=== PATIENT | female | born 1970 | race Caucasian/White ===

== ENCOUNTER 2017-03-11 02:03 | Emergency (ER) | payer BC ==
[2017-03-11] MEDS ORDERED: ASPIRIN 81 MG TABLET, CHEWABLE PO ONE (03:41)
[2017-03-11] MEDS ORDERED: METOCLOPRAMIDE HCL ORAL SOLN 10 MG/10 ML UDCUP PO ONE (04:43)
[2017-03-11] MEDS ORDERED: LIDOCAINE 2% VISCOUS SOLN 20 ML UDCUP PO ONE (04:43)
[2017-03-11] MEDS ORDERED: MAG HYDROX/AL HYDROX/SIMETH SUSP 30 ML UDCUP PO PRN (04:43)
--- NOTE | 2017-03-11 04:52 | RADIOLOGY REPORT (SQ) ---
EXAM DESCRIPTION: CHEST SINGLE VIEW COMPLETED DATE/TIME: 03/11/2017 4:40 am REASON FOR STUDY: cp COMPARISON: Chest x-ray 03/09/2009. EXAM PARAMETERS: NUMBER OF VIEWS: One view. TECHNIQUE: Single frontal radiographic view of the chest acquired. RADIATION DOSE: NA LIMITATIONS: None. FINDINGS: LUNGS AND PLEURA: There is a moderate right-sided pleural effusion with airspace opacity a t the right lung base. There is an area of increased lucency along the right heart border. No pneum othorax. MEDIASTINUM AND HILAR STRUCTURES: No masses. Contour normal. HEART AND VASCULAR STRUCTURES: The heart is upper normal limit in size. No overt vascular congestion . BONES: No acute findings. HARDWARE: None in the chest. IMPRESSION: Moderate right pleural effusion with airspace opacity at the right lung base. Area of increased lucency along the right heart border, may represent a cavitary lesion versus superi mposed bowel loop. CT thorax recommended for further evaluation. TECHNICAL DOCUMENTATION: JOB ID: [id number]
[2017-03-11 05:05] LABS: ABSOLUTE BASOPHILS # (AUTO) 0.1 10^3/uL (0.0-0.2); ABSOLUTE MONOCYTES (AUTO) 0.4 10^3/uL (0.1-1.4); ABSOLUTE NEUT (AUTO) 9.5 10^3/uL (1.7-8.2); BASOPHILS % (AUTO) 0.7 % (0-2); EOSINOPHILS % (AUTO) 0.4 % (0-6); HEMATOCRIT 44.3 % (36.0-47.0); HEMOGLOBIN 15.6 g/dL (12.0-15.5); HGB HCT DIFFERENCE 2.5; LYMPHOCYTES % (AUTO) 9.4 % (13-45); MEAN CORPUSCULAR HEMOGLOBIN 30.2 pg (27.0-33.4); MEAN CORPUSCULAR HGB CONC 35.3 g/dL (32.0-36.0); MEAN CORPUSCULAR VOLUME 86 fl (80-97); MONOCYTES % (AUTO) 3.8 % (3-13); RED BLOOD COUNT 5.18 10^6/uL (3.72-5.28); SEGMENTED NEUTROPHILS % (AUTO) 85.7 % (42-78); WHITE BLOOD COUNT 11.1 10^3/uL (4.0-10.5)
[2017-03-11 05:22] LABS: ALANINE AMINOTRANSFERASE 32 U/L (9-52); ALBUMIN 4.5 g/dL (3.5-5.0); ALKALINE PHOSPHATASE 86 U/L (38-126); ANION GAP 11 (5-19); ASPARTATE AMINO TRANSFERASE 21 U/L (14-36); BILIRUBIN,DIRECT 0.2 mg/dL (0.0-0.4); BILIRUBIN,TOTAL 0.9 mg/dL (0.2-1.3); BLOOD UREA NITROGEN 11 mg/dL (7-20); CALCIUM 9.5 mg/dL (8.4-10.2); CARBON DIOXIDE 25 mmol/L (22-30); CHLORIDE 103 mmol/L (98-107); CREATINE KINASE 118 U/L (30-135); GLUCOSE 115 mg/dL (75-110); LIPASE 68.8 U/L (23-300); POTASSIUM 4.1 mmol/L (3.6-5.0); SODIUM 139.3 mmol/L (137-145); TOTAL PROTEIN 7.4 g/dL (6.3-8.2)
[2017-03-11 05:32] LABS: CREATINE KINASE MB 0.84 ng/mL (<4.55)
--- NOTE | 2017-03-11 05:32 | ER Document Report ---
ED GI/ - General Mode of Arrival: Ambulatory Information source: Patient - HPI Patient complains to provider of: Abdominal pain Associated symptoms: None Similar symptoms previously: Yes <RUSTY BALDERAS - Last Filed: 03/11/17 06:10> <DEBBY LYNN - Last Filed: 03/11/17 08:18> - General Chief Complaint: Chest Pain Stated Complaint: CHEST PAIN/TIGHTNESS Time Seen by Provider: 03/11/17 05:10 Notes: Patient is a 46-year-old female who presents to the emergency department today with complaints of upper abdominal pain. Patient states she has had similar pain 3-4 times a month which usually goes away with Zantac and Gas-X. Patient states this time the pain did not subside with Zantac or Gas-X. Patient states she feels like there is a "band" around the top of her stomach. Patient denies any change with food or vomiting. (RUSTY BALDERAS) - Related Data Allergies/Adverse Reactions: No Known Allergies Allergy (Unverified 03/11/17 02:26) Past Medical History - General Information source: Patient - Social History Smoking Status: Never Smoker Cigarette use (# per day): No Frequency of alcohol use: None Drug Abuse: None Lives with: Family Family History: Reviewed & Not Pertinent - Medical History Medical History: Negative Surgical Hx: Negative <RUSTY BALDERAS - Last Filed: 03/11/17 06:10> Review of Systems - Review of Systems Constitutional: No symptoms reported EENT: No symptoms reported Cardiovascular: No symptoms reported Respiratory: No symptoms reported Gastrointestinal: See HPI, Abdominal pain. denies: Vomiting Genitourinary: No symptoms reported Female Genitourinary: No symptoms reported Musculoskeletal: No symptoms reported Skin: No symptoms reported Hematologic/Lymphatic: No symptoms reported Neurological/Psychological: No symptoms reported -: Yes All other systems reviewed and negative <RUSTY BALDERAS - Last Filed: 03/11/17 06:10> Physical Exam <RUSTY BALDERAS - Last Filed: 03/11/17 06:10> <DEBBY LYNN - Last Filed: 03/11/17 08:18> - Vital signs Vitals: Temp Pulse Resp BP Pulse Ox 97.4 F 69 16 154/96 H 95 03/11/17 02:29 03/11/17 02:29 03/11/17 02:29 03/11/17 02:29 03/11/17 02:29 - Notes Notes: PHYSICAL EXAM GENERAL: Alert, interacts well. No acute distress. HEAD: Normocephalic, atraumatic. EYES: Pupils equal, round, and reactive to light. Extraocular movements intact. ENT: Oral mucosa moist, tongue midline. NECK: Full range of motion. Supple. Trachea midline. LUNGS: Clear to auscultation bilaterally, no wheezes, rales, or rhonchi. Hypoxic at 88 with good wave form when lying flat. HEART: Regular rate and rhythm. No murmurs, gallops, or rubs. ABDOMEN: Obese. Soft, mild right upper quadrant and epigastric tenderness with palpation. Negative murphys sign. Non-distended. Bowel sounds present in all 4 quadrants. EXTREMITIES: Moves all 4 extremities spontaneously. No edema, radial and dorsalis pedis pulses 2/4 bilaterally. No cyanosis. NEUROLOGICAL: Alert and oriented x3. Normal speech. PSYCH: Normal affect, normal mood. SKIN: Warm, dry, normal turgor. No rashes or lesions noted. (RUSTY BALDERAS) Course - Laboratory Result Diagrams: 03/11/17 04:17 03/11/17 04:17 <RUSTY BALDERAS - Last Filed: 03/11/17 06:10> - Laboratory Result Diagrams: 03/11/17 04:17 03/11/17 04:17 <DEBBY LYNN - Last Filed: 03/11/17 08:18> - Re-evaluation Re-evalutation: 03/11/17 07:48 CBC shows slight leukocytosis at 11.1, CMP grossly unremarkable, cardiac enzymes negative, lipase normal, test negative, chest x-ray shows moderate right pleural effusion with airspace opacity right lung base, area of increased lucency along right heart border may represent cavitary lesion versus superimposed bowel loop CT thorax is recommended. CT scan of the chest was then ordered which showed large right-sided anterior diaphragmatic hernia containing omental fat and a segment of transverse colon. This finding was discussed with Dr. Orozco the surgeon on-call who agreed that we should discuss this with the cardiothoracic surgeons at [facility], phone call has been made to cardiac connection at [facility] and they have paged the appropriate doctor. Patient's hypoxia has improved when we changed her to a different pulse oximeter , when laying flat she still has an oxygen saturation of approximately 92%. Still having mild pain no longer moderate to severe. 03/11/17 08:[address] Goodman, thoracic surgeon with [facility] , states that the patient has had this hernia their entire life, states that they do not tend to suddenly get bigger it is likely been slowly growing for a long time. I do think this fits the patient's presentation where she has been having a steadily increasing amount of pain over the past several months. No indication for emergent surgery today, no evidence of perforation. Discussed with patient that she should return for fevers or suddenly worsening abdominal pain. Discussed with patient that for the meantime as antacids do tend to relieve some of her pain we will start her on daily Protonix. Some of her pain may be coming from GERD or gastritis rather than from this hernia. Patient is referred to Dr. Goodman for outpatient follow-up regarding the hernia. (DEBBY LYNN) - Vital Signs Vital signs: Temp Pulse Resp BP Pulse Ox 97.4 F 69 19 147/94 H 95 03/11/17 02:29 03/11/17 02:29 03/11/17 06:01 03/11/17 06:01 03/11/17 06:35 - Laboratory Laboratory results interpreted by me: 03/11/17 03/11/17 04:17 04:17 WBC 11.1 H Hgb 15.6 H Seg Neutrophils % 85.7 H Lymphocytes % 9.4 L Absolute Neutrophils 9.5 H Glucose 115 H - EKG Interpretation by Me Additional EKG results interpreted by me: 03/11/17 07:51 CBC shows sinus rhythm at a rate of 78, left axis deviation, normal intervals, no ST segment elevations or depressions, there are T-wave inversions noted in lead III and V2 with T-wave flattening in V3 per my interpretation. (DEBBY LYNN) Discharge <RUSTY BALDERAS - Last Filed: 03/11/17 06:10> <DEBBY LYNN - Last Filed: 03/11/17 08:18> - Discharge Clinical Impression: Morgagni hernia, Epigastric abdominal pain Hypertension Qualifiers: Hypertension type: essential hypertension Qualified Code(s): I10 - Essential ( primary) hypertension Condition: Stable Disposition: HOME, SELF-CARE Additional Instructions: You have a Morgagni hernia, this is an anterior diaphragmatic hernia. This is allowed some intra-abdominal fat and some of your intestine to go into your chest cavity. This can cause some difficulty breathing as it gets bigger. This is a hernia that you have had your entire life but it has been getting bigger for several years. If your pain suddenly worsens or you develop fevers please return to the emergency department immediately otherwise please follow- up with [facility] as an outpatient. I did discuss her case with Dr. Goodman earlier today and he asks that you follow-up with them as an outpatient for hernia repair. His numbers on your discharge paperwork. Dr. Jennings will need to refer you to their office. Please take the Protonix as directed for your epigastric abdominal pain. Prescriptions: Pantoprazole Sodium [Protonix] 40 mg PO DAILY #30 tablet.dr Forms: Elevated Blood Pressure Referrals: FER NAGEL MD [Primary Care Provider] - Follow up as needed AYANA GOODMAN MD [NO LOCAL MD] - Follow up as needed Scribe Attestation: 03/11/17 08:18 I personally performed the services described in the documentation, reviewed and edited the documentation which was dictated to the scribe in my presence, and it accurately records my words and actions. (DEBBY LYNN) Scribe Documentation - Scribe Written by Scryoni:: Blake Phelps, 03/11/2017 0614 acting as scribe for :: Jonah <RUSTY BALDERAS - Last Filed: 03/11/17 06:10>
[2017-03-11] MEDS ORDERED: HYDROMORPHONE HCL INJ/PF 2 MG/ML AMPULE IV ONE (05:33)
[2017-03-11 05:39] LABS: TROPONIN I < 0.012 ng/mL
--- NOTE | 2017-03-11 06:52 | RADIOLOGY REPORT (SQ) ---
EXAM DESCRIPTION: CT CHEST WITH COMPLETED DATE/TIME: 03/11/2017 6:25 am REASON FOR STUDY: right pleural effusion, poss cavitary lesion COMPARISON: Chest x-ray 03/11/2017. TECHNIQUE: CT scan of the chest performed using helical scanning technique with dynamic intravenous contrast injection. Images reviewed with lung, soft tissue and bone windows. Reconstructed coronal and sagittal MPR images reviewed. All images stored on PACS. All CT scanners at this facility use dose modulation, iterative reconstruction, and/or weight based d osing when appropriate to reduce radiation dose to as low as reasonably achievable (ALARA). [facility]: Dose Right [facility]: CareDose [facility]: Dose Right [facility]: Teradose 4D [facility]: [employer] CONTRAST TYPE AND DOSE: 80 mL Isovue 370 RENAL FUNCTION: Creatinine 0.70 RADIATION DOSE: Up-to-date CT equipment and radiation dose reduction techniques were employed. CTDIv ol: 21.1 mGy. DLP: 760 mGy-cm. . LIMITATIONS: None. FINDINGS: LUNGS AND PLEURA: Mild bibasilar atelectasis. No pleural effusion or pneumothorax. No ev idence for a cavitary lesion. HILAR AND MEDIASTINAL STRUCTURES: No identified masses or abnormal nodes. HEART AND VASCULAR STRUCTURES: No thoracic aortic aneurysm or dissection. Coronary arteries calcific ations are noted. No pericardial effusion. HARDWARE: None in the chest. UPPER ABDOMEN: There is a large right-sided anterior diaphragmatic hernia containing omental fat and a segment of the transverse colon, with the hernia neck measuring approximately 6.2 cm. BONES: No acute findings. IMPRESSION: Mild bibasilar atelectasis. Large right-sided anterior diaphragmatic hernia (Morgagni type) containing omental fat and a segment of the transverse colon, corresponding to the abnormality seen on prior chest x-ray. TECHNICAL DOCUMENTATION: JOB ID: [id number] CT-64 Quality ID # [id number]: Final reports with documentation of one or more dose reduction techniques (e.g., Au tomated exposure control, adjustment of the mA and/or kV according to patient size, use of iterative reconstruction technique) 2010 [employer]- All Rights Reserved
--- NOTE | 2017-03-11 08:03 | EKG REPORT ---
SEVERITY:- BORDERLINE ECG - SINUS RHYTHM BORDERLINE T ABNORMALITIES, ANTERIOR LEADS : Confirmed by: Chadd Avendaño MD 11-Mar-2017 08:02:18
[2017-03-11 08:40] VITALS: BP 159/110
--- NOTE | 2017-03-11 10:02 | CONSULTATION REPORT E ---
Consultation Report NAME: REBECCA POLANCO : 1970 AGE: 46Y DATE: 03/11/2017 TO: TRINIDAD CORBIN M.D. FROM: Rupa JAY, Requesting Physician REASON FOR CONSULTATION: Patient with Morgagni herniation. HISTORY OF PRESENT ILLNESS: This is a 46-year-old female who has been complaining of off and on epigastric pains for the past month. The pain is usually relieved with taking Zantac or Gas-X. Last night she had pains again and took Zantac and the pains did not subside and, therefore, went to the emergency room. She feels like there is a band around the top of her stomach. There is no nausea or vomiting. No diarrhea or constipation. She denies any trauma in the past. She had 4 pregnancies which were all normal. No other surgical history. SOCIAL HISTORY: Never smoked. Denies alcohol use or drug use. Lives with her family. FAMILY HISTORY: Noncontributory. Denies anybody in the family with thoracic herniation. REVIEW OF SYSTEMS: Constitutional: Denies any weakness, chills or fever. EENT: No hearing or visual problems. Cardiovascular: No chest pain. GI: As per HPI. The patient has abdominal pains. No nausea or vomiting. Genitourinary: No dysuria. Musculoskeletal: No joint pain. Skin: No skin rash. Hematologic/lymphatic: No easy bruisability. Neurologic: No loss of consciousness or seizures. All other systems reviewed are negative. PHYSICAL EXAMINATION: GENERAL APPEARANCE: This is a 46-year-old female, slightly obese. The patient is alert and oriented and apparently in no acute distress. She claims the pains were requiring pain medications when she came in at around 1 o'clock but they gave her the pain medication and the pains dulled with the pain medication. VITAL SIGNS: Temperature 97.4, pulse 69 per minute, respirations 16 per minute, BP 154/96 and pulse oximetry of about 95 on room air. According to Dr. Shine, the ER physician, at one point her pulse oximetry went down to 80%. HEENT: Head is normocephalic, atraumatic. Eyes: Pupils are equal and reactive to light. ENT: Tongue is midline and mucosa was moist. Neck is supple. RESPIRATORY: Lungs are clear to auscultation. Hypoxic 88% oxygen saturation lying flat at one time. HEART: Regular rate and rhythm, no murmurs. ABDOMEN: Soft with tenderness in the epigastric area. There is a little fullness around this area. Negative Watts sign. EXTREMITIES: Range of motion intact. NEUROLOGIC: Alert and oriented x3. PSYCHIATRIC: Normal affect. SKIN: Dry and warm. LABORATORY DATA: Showed white count is 11.1 and hemoglobin 15.6. Segmented neutrophils are 85.7% with lymphocytes at 9.4%. Glucose at 115. Troponin is negative and serum hCG is negative with lipase of 68 which is normal. She had a CAT scan of the chest which showed anterior herniation on the right side with about a 6 cm diaphragmatic defect with omentum and part of the transverse colon. IMPRESSION: Morgagni hernia on the right diaphragm with omentum in transverse colon. RECOMMENDATIONS: In view of the pains being persistent since last night, I would ask the opinion of a thoracic surgeon at [facility] and see if patient needs to be seen today. DICTATING PHYSICIAN: TRINIDAD CORBIN M.D. [id number] PHY#: [id number] ID: [id number] JOB#: [id number] ACCT: [id number] cc:TRINIDAD CORBIN M.D. >
== END 2017-03-11 08:39 | disposition home or self-care (01) ==
LOC: ER 02:03
DX: Q79.0 Congenital diaphragmatic hernia (principal); I10 Essential (primary) hypertension; J90 Pleural effusion, not elsewhere classified; R09.02 Hypoxemia; R10.13 Epigastric pain; D72.829 Elevated white blood cell count, unspecified; Z32.02 Encounter for pregnancy test, result negative
CPT/HCPCS: 93005; 99285; 96374; 36415; 82553; 82550; 83690; 84703; 85025; 80053; 84484; 71010; 71260; 93010; J3490; J1170